=== PATIENT | male | born 1990 | race Hispanic/Latino ===

== ENCOUNTER 2017-08-03 15:53 | Emergency (ER) | payer SELFPAY ==
[2017-08-03] MEDS ORDERED: DIAZEPAM 5 MG TABLET ONE (17:37)
== END 2017-08-03 17:49 | disposition home or self-care (01) ==
LOC: EDH 15:53
DX: R07.89 Other chest pain (principal); F41.9 Anxiety disorder, unspecified; Z72.0 Tobacco use
CPT/HCPCS: 93005